=== PATIENT | female | born 1970 | race Caucasian/White ===

== ENCOUNTER 2022-08-13 22:52 | Inpatient (IN) | payer BC ==
[2022-08-13 23:28] LABS: #Basophils 0.1 thou/uL (0.0-0.2); #Monocytes 1.2 thou/uL (0.11-0.59); #Neutrophils 9.9 thou/uL (1.40-6.50); %Basophils 0.4 % (0.0-1.0); %Eosinophils 0.2 % (0.0-10.0); %Lymphocytes 21.7 % (21.0-51.0); %Monocytes 8.2 % (0.0-10.0); %Neutrophils 68.9 % (42.0-75.0); Hemoglobin 14.4 g/dL (12.0-16.0); Mean Corpuscular HGB CONC 33.3 g/dL (32.0-36.0); Mean Corpuscular Hemoglobin 31.3 pg (27.0-31.0); Mean Corpuscular Volume 94.1 fl (78.0-98.0); Platelet Count 290 10x3/uL (130-400); RBC Distribution Width 14.9 % (11.5-14.5); White Blood Cell (WBC) Count 14.3 10x3/uL (4.8-10.8)
[2022-08-13 23:53] LABS: ALT (SGPT) 46 U/L (8-55); AST (SGOT) 21 U/L (5-34); Albumin 4.7 g/dL (3.5-5.0); Alkaline Phosphatase 71 U/L (40-110); Anion Gap 26 mmol/L (10-20); BUN (Urea Nitrogen) 37 mg/dL (9.8-20.1); Bilirubin, Total 0.4 mg/dL (0.2-1.2); Calc. Creatinine Clearance 0 mL/min (70-130); Calcium 9.9 mg/dL (7.8-10.44); Carbon Dioxide 19 mmol/L (22-29); Chloride 96 mmol/L (98-107); Estimated GFR 11; Globulin 3.6 g/dL (2.4-3.5); Glucose 95 mg/dL (70-105); Potassium 4.4 mmol/L (3.5-5.1); Protein, Total 8.3 g/dL (6.0-8.3); Sodium 137 mmol/L (136-145)
[2022-08-13 23:54] LABS: Acetaminophen Less than 10 mcg/mL (10.0-30.0); Alcohol Less than 10.0 mg/dL (Less than 10); Salicylate Less than 8.0 mg/dL (15.0-30.0)
[2022-08-14 00:04] LABS: INR-International Normal Ratio 0.9; PTT 25.4 sec (22.9-36.1); Prothrombin Time 12.9 sec (12.0-14.7)
[2022-08-14 00:14] LABS: CK (CPK) 151 U/L (29-168); Magnesium 2.4 mg/dL (1.6-2.6)
[2022-08-14] MEDS ORDERED: Vancomycin 1 GM/200 ML (FROZEN) BAG ONE (00:35)
[2022-08-14] MEDS ORDERED: LORazepam 2 MG/ML SYR.(CARPUJECT) ONE (00:35)
[2022-08-14] MEDS ORDERED: Cefepime 2 GM VIAL ONE (00:35)
[2022-08-14] MEDS: Sodium Chloride 0.9% 1,000 ML IV SCH ×5 (02:30→19:33)
[2022-08-14] MEDS ORDERED: Acetaminophen 325 MG TAB PO PRN (02:31)
[2022-08-14] MEDS ORDERED: Ondansetron PF 4 MG/2 ML Vial IVP PRN (02:31)
[2022-08-14] MEDS ORDERED: Acetaminophen 650 MG Suppository PR PRN (02:31)
[2022-08-14] MEDS ORDERED: Ondansetron ODT 4 MG TAB PO PRN (02:31)
[2022-08-14 03:19] VITALS: BMI 24.3
[2022-08-14] MEDS ORDERED: Sodium Chloride 0.9% 500 ML IV SCH ×2 (04:30→20:30)
[2022-08-14 06:07] LABS: Bacteria/HPF 3+ HPF (None Seen); Bilirubin Negative (Negative); Blood, Urine Trace (Negative); CAUTI Indications for Culture Alt mental st,lethar; Clarity Clear (Clear); Glucose, Urine (Dipstick) Normal (Negative); Ketone, Urine 10 mg/dL (Negative); Leukocyte Negative Leu/uL (Negative); Nitrite Negative (Negative); Protein, Urine (Dipstick) 30 mg/dL (Neg-Trace); RBC/HPF 0-3 HPF (0-3); Specific Gravity, Urine 1.015 (1.002-1.036); Urobilinogen Normal mg/dL (Less than 2); WBC/HPF 0-3 HPF (0-3); pH, Urine 5.5 (5.0-9.0)
[2022-08-14 06:12] LABS: Urine Culture Reflex No No
[2022-08-14] MEDS ORDERED: NOREPINEPHRINE 8 MG/250 ML-D5W 250 ML IVPB SCH (06:15)
[2022-08-14] MEDS ORDERED: Vancomycin Dose by Levels Sliding Scale (Wt <71) FS SCH (06:30)
[2022-08-14 06:34] LABS: #Eosinphils 0.1 thou/uL (0.0-0.7); #Monocytes 0.8 thou/uL (0.11-0.59); #Neutrophils 7.2 thou/uL (1.40-6.50); %Basophils 0.3 % (0.0-1.0); %Eosinophils 0.7 % (0.0-10.0); %Lymphocytes 21.7 % (21.0-51.0); %Monocytes 7.8 % (0.0-10.0); %Neutrophils 69.1 % (42.0-75.0); Hemoglobin 12.3 g/dL (12.0-16.0); Mean Corpuscular HGB CONC 32.8 g/dL (32.0-36.0); Mean Corpuscular Hemoglobin 31.2 pg (27.0-31.0); Mean Corpuscular Volume 95.2 fl (78.0-98.0); Mean Platelet Volume 10.8 fL (7.4-10.4); RBC Distribution Width 14.9 % (11.5-14.5); Red Blood Cell (RBC) Count 3.94 mill/uL (4.20-5.40); White Blood Cell (WBC) Count 10.4 10x3/uL (4.8-10.8)
[2022-08-14 06:47] LABS: Platelet Count 189 10x3/uL (130-400)
[2022-08-14 07:01] LABS: Amphetamine Detected (NotDetected); Barbiturates Screen Not Detected (NotDetected); Benzodiazepine Screen Detected (NotDetected); Cocaine Metabolite Screen Not Detected (NotDetected); Methadone Not Detected (NotDetected); Methamphetamine Not Detected (NotDetected); Opiate Screen Detected (NotDetected); Oxycodone Screen Not Detected (NotDetected); Phencyclidine (PCP) Not Detected (NotDetected); THC/Cannabinoid Screen Not Detected (NotDetected); Tricyclic Screen Not Detected (NotDetected)
[2022-08-14 07:03] LABS: Lactic Acid 1.7 mmol/L (0.5-2.2)
[2022-08-14 07:30] LABS: Anion Gap 13 mmol/L (10-20); BUN (Urea Nitrogen) 32 mg/dL (9.8-20.1); Calc. Creatinine Clearance 24 mL/min (70-130); Calcium 8.1 mg/dL (7.8-10.44); Carbon Dioxide 23 mmol/L (22-29); Chloride 106 mmol/L (98-107); Estimated GFR 20; Glucose 104 mg/dL (70-105); Potassium 3.9 mmol/L (3.5-5.1); Sodium 138 mmol/L (136-145)
[2022-08-14] MEDS ORDERED: [UNRECOGNIZED DRUG - REMARK] IVPB PRN (08:03)
[2022-08-14] MEDS: ALPRAZolam 1 MG TAB PO PRN (11:03)
[2022-08-14 12:40] LABS: Creatinine, Urine 88.76 mg/dL (47-110)
[2022-08-14] MEDS ORDERED: VANCOMYCIN 1.25 GM/250 ML BAG 1.25 GM in Premix Bag 1 BAG IVPB SCH (13:00)
[2022-08-14] MEDS: Cefepime 1 GM in Sodium Chloride 0.9% 100 ML IVPB SCH (15:06)
[2022-08-15] MEDS: Baclofen 10 MG TAB PO PRN ×2 (00:21→19:38)
[2022-08-15] MEDS: ALPRAZolam 1 MG TAB PO PRN ×2 (00:21→07:27)
[2022-08-15] MEDS: Cefepime 1 GM in Sodium Chloride 0.9% 100 ML IVPB SCH ×2 (00:22→13:06)
[2022-08-15] MEDS: Sodium Chloride 0.9% 1,000 ML IV SCH ×2 (06:10→13:07)
[2022-08-15] MEDS ORDERED: Lorazepam 2 MG/ML VIAL SLOW IVP PRN (09:13)
[2022-08-15] MEDS: Lorazepam 2 MG/ML VIAL SLOW IVP SCH (10:03)
[2022-08-15] MEDS ORDERED: Lorazepam 1 MG TAB PO PRN (13:10)
[2022-08-15 13:27] LABS: #Eosinphils 0.1 thou/uL (0.0-0.7); #Monocytes 0.4 thou/uL (0.11-0.59); #Neutrophils 2.3 thou/uL (1.40-6.50); %Basophils 0.8 % (0.0-1.0); %Eosinophils 1.8 % (0.0-10.0); %Lymphocytes 43.2 % (21.0-51.0); %Monocytes 8.6 % (0.0-10.0); %Neutrophils 45.2 % (42.0-75.0); Hemoglobin 11.1 g/dL (12.0-16.0); Mean Corpuscular HGB CONC 32.9 g/dL (32.0-36.0); Mean Corpuscular Hemoglobin 31.3 pg (27.0-31.0); Mean Corpuscular Volume 94.9 fl (78.0-98.0); Mean Platelet Volume 12.4 fL (7.4-10.4); RBC Distribution Width 15.4 % (11.5-14.5); Red Blood Cell (RBC) Count 3.55 mill/uL (4.20-5.40); White Blood Cell (WBC) Count 5.1 10x3/uL (4.8-10.8)
[2022-08-15 13:31] LABS: Platelet Count 140 10x3/uL (130-400)
[2022-08-15 13:49] LABS: Vancomycin, Random 2.2 ug/mL (See Comment)
[2022-08-15 13:51] LABS: Anion Gap 11 mmol/L (10-20); BUN (Urea Nitrogen) 11 mg/dL (9.8-20.1); Calc. Creatinine Clearance 78 mL/min (70-130); Calcium 7.9 mg/dL (7.8-10.44); Carbon Dioxide 17 mmol/L (22-29); Chloride 116 mmol/L (98-107); Estimated GFR 84; Glucose 95 mg/dL (70-105); Potassium 3.9 mmol/L (3.5-5.1); Sodium 140 mmol/L (136-145)
[2022-08-15] MEDS: Acetaminophen 650 MG/20.3 ML UDCUP PO PRN ×2 (14:34→20:49)
[2022-08-15] MEDS: DAPTOmycin 500 MG in Sodium Chloride 0.9% 100 ML IVPB SCH (18:33)
[2022-08-16] MEDS: Baclofen 10 MG TAB PO PRN ×2 (00:25→16:19)
[2022-08-16] MEDS: Lorazepam 0.5 MG TAB PO PRN ×3 (00:25→20:19)
[2022-08-16] MEDS: Acetaminophen 650 MG/20.3 ML UDCUP PO PRN ×2 (09:56→16:20)
[2022-08-16] MEDS ORDERED: busPIRone HCl 5 MG TAB PO SCH ×2 (09:59→10:15)
[2022-08-16] MEDS ORDERED: Lidocaine 4% Topical Sol 50 ML BOT TOP SCH (10:00)
[2022-08-16] MEDS: Lorazepam 2 MG/ML VIAL SLOW IVP SCH (12:29)
[2022-08-16 13:29] LABS: #Basophils 0.1 thou/uL (0.0-0.2); #Eosinphils 0.1 thou/uL (0.0-0.7); #Monocytes 0.5 thou/uL (0.11-0.59); %Basophils 0.7 % (0.0-1.0); %Eosinophils 1.3 % (0.0-10.0); %Lymphocytes 33.4 % (21.0-51.0); %Neutrophils 57.5 % (42.0-75.0); Hemoglobin 11.6 g/dL (12.0-16.0); Mean Corpuscular HGB CONC 31.7 g/dL (32.0-36.0); Mean Corpuscular Hemoglobin 31.1 pg (27.0-31.0); Mean Corpuscular Volume 98.1 fl (78.0-98.0); Mean Platelet Volume 11.3 fL (7.4-10.4); Platelet Count 152 10x3/uL (130-400); RBC Distribution Width 15.3 % (11.5-14.5); Red Blood Cell (RBC) Count 3.73 mill/uL (4.20-5.40)
[2022-08-16 13:49] LABS: Anion Gap 12 mmol/L (10-20); BUN (Urea Nitrogen) 9 mg/dL (9.8-20.1); Calc. Creatinine Clearance 88 mL/min (70-130); Calcium 8.8 mg/dL (7.8-10.44); Carbon Dioxide 19 mmol/L (22-29); Chloride 109 mmol/L (98-107); Estimated GFR 98; Glucose 91 mg/dL (70-105); Potassium 3.6 mmol/L (3.5-5.1); Sodium 136 mmol/L (136-145)
[2022-08-16] MEDS: DAPTOmycin 500 MG in Sodium Chloride 0.9% 100 ML IVPB SCH (18:57)
[2022-08-16] MEDS: Gabapentin 300 MG CAP PO SCH (20:20)
[2022-08-16] MEDS: busPIRone HCl 5 MG TAB PO SCH (20:20)
[2022-08-17] MEDS: Baclofen 10 MG TAB PO PRN ×2 (03:38→21:38)
[2022-08-17] MEDS: Lorazepam 0.5 MG TAB PO PRN ×2 (03:38→10:04)
[2022-08-17] MEDS: Gabapentin 300 MG CAP PO SCH ×2 (10:04→21:37)
[2022-08-17] MEDS: busPIRone HCl 5 MG TAB PO SCH ×3 (10:05→21:37)
[2022-08-17] MEDS ORDERED: valACYclovir 500 MG TAB PO SCH (10:15)
[2022-08-17] MEDS: Acetaminophen 650 MG/20.3 ML UDCUP PO PRN (11:43)
[2022-08-17] MEDS ORDERED: ALPRAZolam 1 MG TAB PO SCH (14:15)
[2022-08-17] MEDS: ALPRAZolam 1 MG TAB PO SCH ×2 (17:41→21:38)
[2022-08-17] MEDS ORDERED: DAPTOmycin 500 MG in Sodium Chloride 0.9% 100 ML IVPB SCH (22:00)
[2022-08-18] MEDS: DAPTOmycin 500 MG in Sodium Chloride 0.9% 100 ML IVPB SCH (00:54)
[2022-08-18] MEDS: Baclofen 10 MG TAB PO PRN ×2 (05:36→13:25)
[2022-08-18] MEDS: Acetaminophen 650 MG/20.3 ML UDCUP PO PRN (05:58)
[2022-08-18] MEDS: busPIRone HCl 5 MG TAB PO SCH (08:46)
[2022-08-18] MEDS: ALPRAZolam 1 MG TAB PO SCH (08:46)
[2022-08-18] MEDS: Gabapentin 300 MG CAP PO SCH (08:49)
[2022-08-18] MEDS ORDERED: Pregabalin 25 MG CAP PO SCH (09:00)
[2022-08-18] MEDS ORDERED: valACYclovir 500 MG TAB PO SCH ×2 (09:00→10:00)
[2022-08-18] MEDS: Lorazepam 1 MG TAB PO SCH ×2 (13:25→16:17)
[2022-08-18 16:50] VITALS: BP 127/80; TEMP 98
== END 2022-08-18 18:58 | disposition home or self-care (01) | DRG 871 ==
LOC: ERS 22:52 → T4-B 08-14 01:34 → CCU 08-14 06:12 → OBSVTOIN 08-14 07:46 → T4-B 08-14 12:48
PROVIDERS: ADMIT Student in an Organized Health Care Education/Training Program; ATTEND Internal Medicine
PROC: 3E033XZ Introduction of Vasopressor into Peripheral Vein, Percutaneous Approach (ICD-10-PCS; principal; 2022-08-14)
PROC: 3E03329 Introduction of Other Anti-infective into Peripheral Vein, Percutaneous Approach (ICD-10-PCS; 2022-08-14)
DX: A41.9 Sepsis, unspecified organism (principal); R65.21 Severe sepsis with septic shock; N17.9 Acute kidney failure, unspecified; M79.642 Pain in left hand; G89.29 Other chronic pain; M54.9 Dorsalgia, unspecified; M79.641 Pain in right hand; N28.1 Cyst of kidney, acquired; G40.909 Epilepsy, unspecified, not intractable, without status epilepticus; F41.9 Anxiety disorder, unspecified; E86.0 Dehydration; E86.9 Volume depletion, unspecified; F90.9 Attention-deficit hyperactivity disorder, unspecified type; M25.341 Other instability, right hand; Z88.5 Allergy status to narcotic agent; Z79.899 Other long term (current) drug therapy; Z98.890 Other specified postprocedural states; Z86.73 Personal history of transient ischemic attack (TIA), and cerebral infarction without residual deficits
CPT/HCPCS: 36415; 71045; 76770; 80048; 80053; 80202; 80306; 80307; 81001; 82550; 82570; 83605; 83735; 84156; 84300; 84443; 84484; 85025; 85610; 85730; 87040; 87077; 87086; 87149; 93005; 94760; 96361; 96365; 96368; 96375; G0378; J0692; J0878; J1650; J2060; J3370-JW; J3490; J7050